=== PATIENT | female | born 1975 ===

== ENCOUNTER 2018-02-22 08:56 | Emergency (ER) | payer MEDICAID ==
[2018-02-22 08:58] VITALS: BMI 30.4
[2018-02-22 09:01] VITALS: TEMP 98.2
[2018-02-22] MEDS ORDERED: Labetalol 5 mg/ml Inj 20ML IVP STA (09:42)
[2018-02-22 09:59] LABS: BASO # 0.1 K/uL (0.0-0.2); EOS # 0.2 K/uL (0.0-0.7); EOS % 2.4 % (0.0-4.0); HEMOGLOBIN 13.5 g/dL (12.0-16.0); LYMPH # 1.9 K/uL (1.0-4.3); LYMPH % 24.4 % (20.0-40.0); MEAN CORPUSCULAR HEMOGLOBIN 29.1 pg (27.0-31.0); MEAN CORPUSCULAR HGB CONC 33.4 g/dL (33.0-37.0); MEAN PLATELET VOLUME 8.9 fl (7.2-11.7); MONO # 0.5 K/uL (0.0-0.8); MONO % 6.8 % (0.0-10.0); NEUT # 5.2 K/uL (1.8-7.0); NEUT % 65.4 % (50.0-75.0); NRBC % 0.1 % (0.0-0.0); RBC 4.65 Mil/uL (3.80-5.20); RED CELL DISTRIBUTION WIDTH 14.8 % (11.5-14.5); WHITE BLOOD COUNT 7.9 K/uL (4.8-10.8)
[2018-02-22 10:20] LABS: ALBUMIN 3.7 g/dL (3.5-5.0); ALT/SGPT 34 U/L (9-52); AST/SGOT 20 U/L (14-36); BLOOD UREA NITROGEN 18 mg/dl (7-17); GFR AFRICAN-AMERICAN > 60; GFR NON-AFRICAN AMERICAN > 60
--- NOTE | 2018-02-22 10:22 | ED PDOC ---
HPI: Hypertension/Hypotension Time Seen by Provider: 02/22/18 09:16 Chief Complaint (Nursing): High Blood Pressure History Per: Patient (This is a 42 yo lady without significant medical problem who presents to the ER because of hypertension that is poorly controlled. Patient states that she was only recently diagnosed and was started on HCTZ 25mg. She took her first dose last night. She denies chest pain, headache, nausea, vision problem, shortness of breath. She admits to have left sided back pain but has not noticed any change in her urine.) Past Medical History Reviewed: Historical Data, Nursing Documentation, Vital Signs Vital Signs: Last Vital Signs Temp 98.2 F 02/22/18 08:58 Pulse 64 02/22/18 10:11 Resp 14 02/22/18 10:11 BP 158/110 H 02/22/18 10:11 Pulse Ox 100 02/22/18 10:11 - Medical History PMH: HTN - Surgical History Surgical History: No Surg Hx - Family History Family History: States: No Known Family Hx - Living Arrangements Living Arrangements: With Family - Social History Current smoker - smoking cessation education provided: No Alcohol: None - Home Medications Home Medications: Ambulatory Orders Medication Instructions Recorded amLODIPine [Norvasc] 10 mg PO DAILY #15 tab 02/22/18 - Allergies Allergies/Adverse Reactions: Allergies Allergy/AdvReac Type Severity Reaction Status Date / Time No Known Allergies Allergy Verified 02/22/18 09:11 Review of Systems ROS Statement: Except As Marked, All Systems Reviewed And Found Negative Genitourinary Female: Negative for: Dysuria, Frequency, Hematuria Musculoskeletal: Positive for: Back Pain (left side) Physical Exam - Reviewed Nursing Documentation Reviewed: Yes Vital Signs Reviewed: Yes - Physical Exam Appears: Positive for: Well, Non-toxic, No Acute Distress Head Exam: Positive for: ATRAUMATIC, NORMAL INSPECTION, NORMOCEPHALIC Skin: Positive for: Normal Color, Warm, DRY Eye Exam: Positive for: EOMI, Normal appearance, PERRL ENT: Positive for: Normal ENT Inspection Neck: Positive for: Normal, Painless ROM Cardiovascular/Chest: Positive for: Regular Rate, Rhythm Respiratory: Positive for: CNT, Normal Breath Sounds Gastrointestinal/Abdominal: Positive for: Normal Exam, Soft Back: Positive for: Normal Inspection, L CVA Tenderness (mild) Extremity: Positive for: Normal ROM Neurologic/Psych: Positive for: Alert, Oriented - Laboratory Results Result Diagrams: 02/22/18 09:57 02/22/18 09:57 - ECG O2 Sat by Pulse Oximetry: 100 Medical Decision Making Medical Decision Making: blood pressure is modestly improved. patient remains without symptoms. Case d/w Dr. Poon who started her on HCTZ yesterday. States her EKG is normal as is here and that he did not see evidence of end-organ damage. He agrees to continuing HCTZ and adding Norvasc. He will see her in 4 days when he is back in the office. Disposition - Clinical Impression Clinical Impression: Hypertension - Patient ED Disposition Is Patient to be Admitted: No Doctor Will See Patient In The: Office Counseled Patient/Family Regarding: Diagnosis, Need For Followup, Rx Given - Disposition Referrals: Meryl Miller MD [Family Provider] - Disposition: Routine/Home Disposition Time: 14:00 Condition: IMPROVED Additional Instructions: Continue medication prescribed by Dr. Miller Prescriptions: amLODIPine [Norvasc] 10 mg PO DAILY #15 tab Instructions: High Blood Pressure in Adults Forms: [facility] ([place]) - POA Present On Arrival: None
--- NOTE | 2018-02-22 11:14 | CARD ---
APPROVED REPORT EKG Measurement Heart [id number] <Conclusion> Normal sinus rhythm Normal ECG
--- NOTE | 2018-02-22 11:27 | RAD ---
HISTORY: severe acute hypertension COMPARISON: No prior. TECHNIQUE: Chest PA and lateral FINDINGS: LUNGS: No active pulmonary disease. PLEURA: No significant pleural effusion identified. No pneumothorax apparent. CARDIOVASCULAR: Normal. OSSEOUS STRUCTURES: No significant abnormalities. VISUALIZED UPPER ABDOMEN: Normal. OTHER FINDINGS: None. IMPRESSION: No active disease.
[2018-02-22 11:41] LABS: SQUAMOUS EPITHIAL 10 /hpf (0-5); URINE BACTERIA RARE (<OCC); URINE BILIRUBIN NEGATIVE (NEGATIVE); URINE BLOOD MODERATE (NEGATIVE); URINE CLARITY SLIGHTY-CLOUDY (Clear); URINE COLOR YELLOW (YELLOW); URINE GLUCOSE (UA) NEG (Normal); URINE HYALINE CAST 0-2 /hpf (0-2); URINE LEUKOCYTE ESTERASE NEG Leu/uL (Negative); URINE PROTEIN NEGATIVE (NEGATIVE); URINE UROBILINOGEN 0.2-1.0 mg/dL (0.2-1.0)
[2018-02-22 14:09] VITALS: O2SAT 100
[2018-02-22 14:26] VITALS: BP 133/94; PULSE 66; RESP 16
== END 2018-02-22 15:11 | disposition home or self-care (01) ==
LOC: H.ER 08:56
DX: I10 Essential (primary) hypertension (principal)

== ENCOUNTER 2018-02-23 12:45 | Observation (INO) | payer MEDICAID ==
[2018-02-23 12:45] VITALS: BMI 30.4
--- NOTE | 2018-02-23 13:11 | ED PDOC ---
HPI:STROKE - Time Time: 13:00 - Historian Historian: Patient - Notes: Notes:: Pt reports numbness to L face and L upper shoulder since 11 AM today, associated with generalized RIBERA. Denies focal weakness, visual changes, CP, SOB. Able to ambulate without assistance. Was evaluated here in ED yesterday for elevated BP, Norvasc added to regimen and discharged home. NIHSS Stroke Scale - Date/Time Evaluation Performed Date Performed: 02/23/18 Time Performed: 13:00 When Was NIHSS Performed: Code Stroke - How Severe is the Stroke Level of Consciousness: 0=Alert LOC to Questions: 0=Both comments correct LOC to commands: 0=Obeys both correctly Best Gaze: 0=Normal Visual: 0=No visual loss Facial: 0=Normal Motor Arm - Left: 0=No drift Motor Arm - Right: 0=No drift Motor Leg - Left: 0=No drift Motor Leg - Right: 0=No drift Limb Ataxia: 0=Absent Sensory: 0=Normal Best Language: 0=No aphasia Dysarthia: 0=Normal articulation Extinction & Inattention (Neglect): 0=Normal, no object Score: 0 Severity Of Stroke: 0 = No Stroke rTPA Inclusion/Exclusion - Refusal of Treatment Patient Refused Treatment: No - Inclusion Criteria for Altepase Patient is 18 years or Older: Yes The Clinical Diagnosis of Ischemic Stroke That is Causing a Potentially Disabling Neurological Deficit: No Time of Onset is Well Established to be Less Than 270 Minute Before Treatment Would Begin: Yes Risk/Benefit Discussed With Patient/Family Member Present: No - Warning to TPA With Conditions Condition: Stroke Serevity Too Mild, Rapid Improvement Past Medical History Reviewed: Nursing Documentation, Vital Signs Vital Signs: Last Vital Signs Temp 98.0 F 02/23/18 12:54 Pulse 93 H 02/23/18 12:54 Resp 18 02/23/18 12:54 BP 164/133 H 02/23/18 12:54 Pulse Ox 99 02/23/18 12:54 - Medical History PMH: HTN - Family History Family History: States: Unknown Family Hx - Living Arrangements Living Arrangements: With Family - Social History Current smoker - smoking cessation education provided: No Alcohol: None - Home Medications Home Medications: Ambulatory Orders Medication Instructions Recorded amLODIPine [Norvasc] 10 mg PO DAILY #15 tab 02/22/18 - Allergies Allergies/Adverse Reactions: Allergies Allergy/AdvReac Type Severity Reaction Status Date / Time No Known Allergies Allergy Verified 02/22/18 09:11 Review of Systems Constitutional: Negative for: Fever, Weakness, Malaise, Weight loss Eyes: Negative for: Vision Change Cardiovascular: Negative for: Chest Pain, Palpitations Respiratory: Negative for: Cough, Shortness of Breath Gastrointestinal: Negative for: Abdominal Pain Skin: Negative for: Rash, Lesions Neurological: Positive for: Numbness, Headache. Negative for: Weakness, Incoordination, Change in Speech, Confusion, Seizures, Altered Mental Status, Dizziness Physical Exam - Reviewed Nursing Documentation Reviewed: Yes Vital Signs Reviewed: Yes - Physical Exam Appears: Positive for: Well, No Acute Distress Head Exam: Positive for: ATRAUMATIC, NORMAL INSPECTION Skin: Positive for: Normal Color, Warm, Dry Eye Exam: Positive for: Normal appearance, EOMI, PERRL Neck: Positive for: Normal, Painless ROM, Supple Cardiovascular/Chest: Positive for: Regular Rate, Rhythm Respiratory: Positive for: Normal Breath Sounds Gastrointestinal/Abdominal: Positive for: Normal Exam, Soft. Negative for: Tenderness Extremity: Positive for: Normal ROM Neurologic/Psych: Positive for: Alert, nps II-XII, Oriented, Cerebellar Tests ( Steady). Negative for: Motor/Sensory Deficits, Aphasia, Facial Droop - ECG O2 Sat by Pulse Oximetry: 99 Pulse Ox Interpretation: Normal - Physician Consult Information Time Consulting Physican Contacted: 13:10 Physician Contacted: Carlos Velasquez Outcome Of Conversation: Not a candidate for tPA, admit to tele, echo and MRI brain. Medical Decision Making Medical Decision Makin yo female with L facial and shoulder numbness. - Code stroke - labs - EKG - CXR - CT head - Neuro consult Disposition - Disposition
[2018-02-23] MEDS ORDERED: Sodium Chloride 0.9% 1,000 ML IV SCH (13:15)
--- NOTE | 2018-02-23 13:25 | CT ---
PROCEDURE: CT HEAD WITHOUT CONTRAST. HISTORY: code stroke COMPARISON: None available. TECHNIQUE: Axial computed tomography images were obtained through the head/brain without intravenous contrast. Radiation dose: Total exam DLP = 839.12 mGy-cm. This CT exam was performed using one or more of the following dose reduction techniques: Automated exposure control, adjustment of the mA and/or kV according to patient size, and/or use of iterative reconstruction technique. FINDINGS: HEMORRHAGE: No intracranial hemorrhage. BRAIN: No mass effect or edema. No atrophy or chronic microvascular ischemic changes. VENTRICLES: Unremarkable. No hydrocephalus. CALVARIUM: Unremarkable. PARANASAL SINUSES: Unremarkable as visualized. No significant inflammatory changes. MASTOID AIR CELLS: Unremarkable as visualized. No inflammatory changes. OTHER FINDINGS: None. IMPRESSION: Normal CT of the Head. The above findings were reported to the emergency room physician Dr. Best at 1:20 p.m. on 02/23/2018
[2018-02-23 13:26] LABS: BASO # 0.1 K/uL (0.0-0.2); EOS # 0.2 K/uL (0.0-0.7); EOS % 1.9 % (0.0-4.0); HEMOGLOBIN 15.1 g/dL (12.0-16.0); LYMPH # 1.8 K/uL (1.0-4.3); LYMPH % 22.2 % (20.0-40.0); MEAN CELL VOLUME 86.4 fl (81.0-99.0); MEAN CORPUSCULAR HEMOGLOBIN 29.5 pg (27.0-31.0); MEAN CORPUSCULAR HGB CONC 34.1 g/dL (33.0-37.0); MEAN PLATELET VOLUME 9.1 fl (7.2-11.7); MONO # 0.5 K/uL (0.0-0.8); MONO % 5.7 % (0.0-10.0); NEUT # 5.6 K/uL (1.8-7.0); NEUT % 69.2 % (50.0-75.0); NRBC % 0.2 % (0.0-0.0); RBC 5.14 Mil/uL (3.80-5.20); RED CELL DISTRIBUTION WIDTH 15.2 % (11.5-14.5); WHITE BLOOD COUNT 8.1 K/uL (4.8-10.8)
[2018-02-23 13:36] LABS: ALBUMIN 4.2 g/dL (3.5-5.0); ALT/SGPT 34 U/L (9-52); AST/SGOT 20 U/L (14-36); BLOOD UREA NITROGEN 15 mg/dl (7-17); GFR AFRICAN-AMERICAN > 60; GFR NON-AFRICAN AMERICAN > 60; HDL CHOLESTEROL 41 MG/DL (30-70)
[2018-02-23 13:39] LABS: PARTIAL THROMBOPLASTIN TIME 34.4 Seconds (25.6-37.1); PROTHROMBIN TIME 11.2 Seconds (9.8-13.1)
[2018-02-23 13:47] LABS: LDL CHOLESTEROL 131 mg/dL (0-129)
--- NOTE | 2018-02-23 15:30 | MRI ---
PROCEDURE: MRI BRAIN WITHOUT CONTRAST HISTORY: L facial numbness COMPARISON: None. TECHNIQUE: Multiplanar, multisequence MR images of the brain were obtained without intravenous contrast enhancement. FINDINGS: HEMORRHAGE: None DWI: No evidence of an acute or early subacute infarction. BRAIN PARENCHYMA: There are nonspecific scattered small foci of hyperintense T2 and FLAIR signal seen in the periventricular and subcortical white matter. The differential consideration includes demyelination disease Lyme disease sequela of infection or inflammatory process and migraine. No atrophy or chronic microvascular ischemic changes. VENTRICLES: Unremarkable. No hydrocephalus. CRANIUM: Unremarkable. ORBITS: Grossly unremarkable. PARANASAL SINUSES/MASTOIDS: Clear VASCULAR SYSTEM: Skull base flow voids intact. OTHER FINDINGS: None. IMPRESSION: Nonspecific scattered small foci of hyperintense T2 and FLAIR signal in the subcortical and periventricular white matter. The differential consideration includes demyelination disease, Lyme disease sequela of prior infection or inflammatory process or less likely vasculitis and migraine. No evidence of acute infarction mass effect or midline shift.
--- NOTE | 2018-02-23 16:29 | RAD ---
HISTORY: Code Stroke COMPARISON: Comparison is made with 02/22/2018 FINDINGS: LUNGS: No evidence of acute pulmonary disease or significant interval change since the previous exam PLEURA: No significant pleural effusion identified, no pneumothorax apparent. CARDIOVASCULAR: Normal. OSSEOUS STRUCTURES: No significant abnormalities. VISUALIZED UPPER ABDOMEN: Normal. OTHER FINDINGS: None. IMPRESSION: No active disease.
--- NOTE | 2018-02-23 16:58 | CP.PCM.HP ---
History of Present Illness - History of Present Illness History of Present Illness: 42 yo female diagnosed just yesterday with HTN, came in because of numbness on the left side of the face and left shoulder starting at 10am today associated with generalized headache. She denied motor weakness, visual changes or dysarthria. Present on Admission - Present on Admission Any Indicators Present on Admission: No History of DVT/PE: No History of Uncontrolled Diabetes: No Urinary Catheter: No Decubitus Ulcer Present: No Review of Systems - Review of Systems All systems: reviewed and no additional remarkable complaints except (aside from those mentioned above, 12 point system review were negative by me) Past Patient History - Infectious Disease Hx of Infectious Diseases: None - Tetanus Immunizations Tetanus Immunization: Unknown - Past Medical History & Family History Past Medical History?: No Pertinent Family History: both parents positive for HTN - Past Social History Smoking Status: Never Smoked Chewing Tobacco Use: No Cigar Use: No Alcohol: None Drugs: Denies Home Situation {Lives}: With Family - CARDIAC Hx Hypertension: Yes - PSYCHIATRIC Hx Substance Use: No - ANESTHESIA Hx Anesthesia: No Meds Allergies/Adverse Reactions: Allergies Allergy/AdvReac Type Severity Reaction Status Date / Time No Known Allergies Allergy Verified 02/22/18 09:11 Physical Exam - Constitutional Appears: No Acute Distress - Head Exam Head Exam: ATRAUMATIC - Eye Exam Eye Exam: PERRL. absent: Scleral icterus - ENT Exam ENT Exam: Mucous Membranes Moist - Neck Exam Neck exam: Negative for: Meningismus - Respiratory Exam Respiratory Exam: absent: Rales, Rhonchi, Wheezes, Respiratory Distress - Cardiovascular Exam Cardiovascular Exam: REGULAR RHYTHM, +S1, +S2 - GI/Abdominal Exam GI & Abdominal Exam: Soft. absent: Tenderness - Rectal Exam Rectal Exam: Deferred - Extremities Exam Extremities exam: Negative for: calf tenderness, pedal edema - Back Exam Back exam: NORMAL INSPECTION - Neurological Exam Neurological exam: Alert, Oriented x3 - Psychiatric Exam Psychiatric exam: Normal Affect - Skin Skin Exam: Dry, Intact Results - Vital Signs Recent Vital Signs: Last Vital Signs Temp 98.0 F 02/23/18 12:54 Pulse 93 H 02/23/18 12:54 Resp 18 02/23/18 12:54 BP 164/133 H 02/23/18 12:54 Pulse Ox 99 02/23/18 13:14 - Labs Result Diagrams: 02/23/18 13:15 02/23/18 13:15 Labs: Laboratory Results - last 24 hr 02/23/18 02/23/18 02/23/18 12:55 13:08 13:15 WBC 8.1 RBC 5.14 Hgb 15.1 Hct 44.4 MCV 86.4 MCH 29.5 MCHC 34.1 RDW 15.2 H Plt Count 251 MPV 9.1 Neut % (Auto) 69.2 Lymph % (Auto) 22.2 Lane % (Auto) 5.7 Eos % (Auto) 1.9 Baso % (Auto) 1.0 Neut # (Auto) 5.6 Lymph # (Auto) 1.8 Lane # (Auto) 0.5 Eos # (Auto) 0.2 Baso # (Auto) 0.1 PT INR APTT Sodium Potassium Chloride Carbon Dioxide Anion Gap BUN Creatinine Est GFR ( Amer) Est GFR (Non-Af Amer) POC Glucose (mg/dL) 94 Random Glucose Calcium Total Bilirubin AST ALT Alkaline Phosphatase Troponin I Total Protein Albumin Globulin Albumin/Globulin Ratio Triglycerides Cholesterol LDL Cholesterol Direct HDL Cholesterol Blood Type A POSITIVE Antibody Screen Negative BBK History Checked Patient has bt 02/23/18 02/23/18 13:15 13:15 WBC RBC Hgb Hct MCV MCH MCHC RDW Plt Count MPV Neut % (Auto) Lymph % (Auto) Lane % (Auto) Eos % (Auto) Baso % (Auto) Neut # (Auto) Lymph # (Auto) Lane # (Auto) Eos # (Auto) Baso # (Auto) PT 11.2 INR 1.0 APTT 34.4 Sodium 139 Potassium 3.9 Chloride 102 Carbon Dioxide 22 Anion Gap 19 BUN 15 Creatinine 0.9 Est GFR ( Amer) > 60 Est GFR (Non-Af Amer) > 60 POC Glucose (mg/dL) Random Glucose 103 Calcium 9.0 Total Bilirubin 1.3 AST 20 ALT 34 Alkaline Phosphatase 84 Troponin I < 0.0120 Total Protein 8.4 H Albumin 4.2 Globulin 4.3 H Albumin/Globulin Ratio 1.0 Triglycerides 133 Cholesterol 211 H LDL Cholesterol Direct 131 H HDL Cholesterol 41 Blood Type Antibody Screen BBK History Checked Assessment & Plan - Assessment and Plan (Free Text) Assessment: 42 yo female diagnosed just yesterday with HTN, came in because of numbness on the left side of the face and left shoulder starting at 10am today associated with generalized headache. She denied motor weakness, visual changes or dysarthria. 1. TIA CT scan of head: normal MRI of the head: no acute infarction noted neuro consult with Dr Velasquez (called by ER) 2. HTN BP uncontrolled continue Norvasc 10mg PO daily and HCTZ 25mg PO daily Clonidine 0.1mg PO q hr PRN (max of 0.7mg/24hrs)
[2018-02-23 20:46] VITALS: RESP 18
[2018-02-24 00:27] VITALS: O2SAT 100
[2018-02-24 08:07] LABS: BASO % 0.4 % (0.0-2.0); EOS # 0.1 K/uL (0.0-0.7); EOS % 1.9 % (0.0-4.0); HEMOGLOBIN 14.2 g/dL (12.0-16.0); LYMPH % 24.7 % (20.0-40.0); MEAN CORPUSCULAR HEMOGLOBIN 29.2 pg (27.0-31.0); MEAN PLATELET VOLUME 9.2 fl (7.2-11.7); MONO # 0.4 K/uL (0.0-0.8); MONO % 5.3 % (0.0-10.0); NEUT # 5.4 K/uL (1.8-7.0); NEUT % 67.7 % (50.0-75.0); NRBC % 0.2 % (0.0-0.0); RBC 4.87 Mil/uL (3.80-5.20); RED CELL DISTRIBUTION WIDTH 14.8 % (11.5-14.5)
[2018-02-24 08:12] VITALS: BP 131/88; TEMP 98.3
[2018-02-24 08:16] LABS: BLOOD UREA NITROGEN 16 mg/dl (7-17); CALCIUM 8.7 mg/dL (8.4-10.2); GFR AFRICAN-AMERICAN > 60; GFR NON-AFRICAN AMERICAN > 60; HDL CHOLESTEROL 32 MG/DL (30-70)
[2018-02-24 08:27] LABS: LDL CHOLESTEROL 108 mg/dL (0-129)
[2018-02-24] MEDS ORDERED: Enoxaparin 40 mg Syringe SC SCH (09:00)
[2018-02-24] MEDS ORDERED: Pantoprazole 40 mg EC Tab PO SCH (09:00)
--- NOTE | 2018-02-24 10:24 | CP.PCM.DIS ---
Provider - Provider Date of Admission: 02/23/18 Attending physician: Matt Hernandez MD Time Spent in preparation of Discharge (in minutes): 30 Diagnosis - Discharge Diagnosis (1) Hypertension Status: Acute Hospital Course - Lab Results Lab Results: Most Recent Lab Values WBC 8.0 K/uL (4.8-10.8) 02/24/18 07:05 RBC 4.87 Mil/uL (3.80-5.20) 02/24/18 07:05 Hgb 14.2 g/dL (12.0-16.0) 02/24/18 07:05 Hct 41.9 % (34.0-47.0) 02/24/18 07:05 MCV 86.0 fl (81.0-99.0) 02/24/18 07:05 MCH 29.2 pg (27.0-31.0) 02/24/18 07:05 MCHC 34.0 g/dL (33.0-37.0) 02/24/18 07:05 RDW 14.8 % (11.5-14.5) H 02/24/18 07:05 Plt Count 255 K/uL (130-400) 02/24/18 07:05 MPV 9.2 fl (7.2-11.7) 02/24/18 07:05 Neut % (Auto) 67.7 % (50.0-75.0) 02/24/18 07:05 Lymph % (Auto) 24.7 % (20.0-40.0) 02/24/18 07:05 [place] % (Auto) 5.3 % (0.0-10.0) 02/24/18 07:05 Eos % (Auto) 1.9 % (0.0-4.0) 02/24/18 07:05 Baso % (Auto) 0.4 % (0.0-2.0) 02/24/18 07:05 Neut # (Auto) 5.4 K/uL (1.8-7.0) 02/24/18 07:05 Lymph # (Auto) 2.0 K/uL (1.0-4.3) 02/24/18 07:05 [place] # (Auto) 0.4 K/uL (0.0-0.8) 02/24/18 07:05 Eos # (Auto) 0.1 K/uL (0.0-0.7) 02/24/18 07:05 Baso # (Auto) 0.0 K/uL (0.0-0.2) 02/24/18 07:05 PT 11.2 Seconds (9.8-13.1) 02/23/18 13:15 INR 1.0 (0.9-1.2) 02/23/18 13:15 APTT 34.4 Seconds (25.6-37.1) 02/23/18 13:15 Sodium 138 mmol/l (132-148) 02/24/18 07:05 Potassium 3.5 MMOL/L (3.6-5.0) L 02/24/18 07:05 Chloride 102 mmol/L (98-107) 02/24/18 07:05 Carbon Dioxide 25 mmol/L (22-30) 02/24/18 07:05 Anion Gap 15 (10-20) 02/24/18 07:05 BUN 16 mg/dl (7-17) 02/24/18 07:05 Creatinine 0.9 mg/dl (0.7-1.2) 02/24/18 07:05 Est GFR ( Amer) > 60 02/24/18 07:05 Est GFR (Non-Af Amer) > 60 02/24/18 07:05 POC Glucose (mg/dL) 94 mg/dL (65-110) 02/23/18 12:55 Random Glucose 105 mg/dL (65-105) 02/24/18 07:05 Hemoglobin A1c 5.2 % (4.2-6.5) 02/23/18 16:12 Calcium 8.7 mg/dL (8.4-10.2) 02/24/18 07:05 Total Bilirubin 1.3 mg/dl (0.2-1.3) 02/23/18 13:15 AST 20 U/L (14-36) 02/23/18 13:15 ALT 34 U/L (9-52) 02/23/18 13:15 Alkaline Phosphatase 84 U/L (38-126) 02/23/18 13:15 Troponin I < 0.0120 ng/mL (0.00-0.120) 02/23/18 13:15 Total Protein 8.4 G/DL (6.3-8.2) H 02/23/18 13:15 Albumin 4.2 g/dL (3.5-5.0) 02/23/18 13:15 Globulin 4.3 gm/dL (2.2-3.9) H 02/23/18 13:15 Albumin/Globulin Ratio 1.0 (1.0-2.1) 02/23/18 13:15 Triglycerides 157 mg/DL (0-149) H 02/24/18 07:05 Cholesterol 190 mg/dL (0-199) 02/24/18 07:05 LDL Cholesterol Direct 108 mg/dL (0-129) 02/24/18 07:05 HDL Cholesterol 32 MG/DL (30-70) 02/24/18 07:05 TSH 3rd Generation 2.88 mIU/ML (0.46-4.68) 02/24/18 07:05 Blood Type A POSITIVE 02/23/18 13:08 Antibody Screen Negative 02/23/18 13:08 BBK History Checked Patient has bt 02/23/18 13:08 - Hospital Course Hospital Course: 42 yo female diagnosed just yesterday with HTN, came in because of numbness on the left side of the face and left shoulder starting at 10am today associated with generalized headache. She denied motor weakness, visual changes or dysarthria. Patient symptoms fully resolved. MRI negative. Pt evaluated by Neurology. Stable to be discharged home. Follow up PCP in one week. 1. TIA vs. Symptomatic Hypertension CT scan of head: normal MRI of the head: no acute infarction noted neuro consult with Dr Velasquez (called by ER) Stable to be dc home with follow up PCP in one week 2. HTN BP uncontrolled continue Norvasc 10mg PO daily and HCTZ 25mg PO daily Clonidine 0.1mg PO q hr PRN (max of 0.7mg/24hrs) Discharge Exam - Head Exam Head Exam: ATRAUMATIC, NORMOCEPHALIC - Eye Exam Eye Exam: EOMI, Normal appearance, PERRL Pupil Exam: NORMAL ACCOMODATION - Neck Exam Neck exam: Full Rom, Normal Inspection - Respiratory Exam Respiratory Exam: Clear to PA & Lateral, NORMAL BREATHING PATTERN - Cardiovascular Exam Cardiovascular Exam: RRR, +S1, +S2 - GI/Abdominal Exam GI & Abdominal Exam: Normal Bowel Sounds, Soft. absent: Mass, Tenderness - Extremities Exam Extremities exam: normal capillary refill, pedal pulses present - Back Exam Back exam: absent: CVA tenderness (L), CVA tenderness (R) - Neurological Exam Neurological exam: Alert, CN II-XII Intact, Normal Gait, Oriented x3, Reflexes Normal Additional comments: no focal deficits - Psychiatric Exam Psychiatric exam: Normal Affect, Normal Mood - Skin Skin Exam: Dry, Warm Discharge Plan - Discharge Medications Prescriptions: amLODIPine [Norvasc] 10 mg PO DAILY #30 tab - Follow Up Plan Condition: STABLE Disposition: HOME/ ROUTINE Additional Instructions: Follow up PCP in ONE week
[2018-02-24 11:02] VITALS: PULSE 9
--- NOTE | 2018-02-25 14:36 | CARD ---
APPROVED REPORT EKG Measurement Heart [id number] <Conclusion> Normal sinus rhythm Possible Left atrial enlargement Borderline ECG
== END 2018-02-24 13:30 | disposition home or self-care (01) ==
LOC: H.ER 12:45 → INTOOBSV 14:33 → H.ERHOLD 14:33 → H.TEL 17:27
DX: I10 Essential (primary) hypertension (principal); Z79.899 Other long term (current) drug therapy; Z82.49 Family history of ischemic heart disease and other diseases of the circulatory system; R51 Headache
CPT/HCPCS: 36415; 70450; 70551; 71045; 80048; 80053; 80061; 81025; 82948; 83036; 84443; 84484; 85025; 85610; 85730; 86850; 86900; 93005; 96360; 96361; 99285; G0378; J7030

== ENCOUNTER 2018-02-26 10:11 | Emergency (ER) | payer MEDICAID ==
[2018-02-26 10:11] VITALS: BMI 30.4
[2018-02-26 10:24] VITALS: O2SAT 100
--- NOTE | 2018-02-26 11:04 | ED PDOC ---
HPI: Chest Pain <Lorena Diaz - Last Filed: 02/26/18 16:24> Chief Complaint (Provider): Chest tightness/Numbness History Per: Patient, Family History/Exam Limitations: no limitations Onset/Duration Of Symptoms: Hrs Current Symptoms Are (Timing): Still Present <Mary Ann Watson - Last Filed: 02/26/18 17:50> Time Seen by Provider: 02/26/18 10:22 Chief Complaint (Nursing): Chest Pain Additional Complaint(s): 42 y/o F with recent diagnosed of HTN presents to ED this morning complaining of chest tightness sensation. Patient states that she woke up today at 4 am with chest tightness sensation, and left facial/ left upper extremity numbness since this morning. Patient states that her left facial numbness resolved, and is intermittent, but still having the LUE numbness. Also reports difficulty breathing, nausea without vomiting, and blurry vision. Denies abdominal pain, chest pain, diarrheas, dizziness, tingling, weakness or other complains. Patient had a recent hospital admission for similar complains of numbness, code stroke was called, Head CT was reported as unremarkable, Brain MRI w/o contrast reported as white matter changes. On admission was seen and evaluated by Neurologist, Dr. Martinez, and cleared from neuro standpoint, and stroke was r/o. (Mary Ann Watson) Supervising Attending Note - Supervising Attending Note The Documented history was done by the: Physician Foreign Language Interpreter, Attending Physician The documented physical exam was done by the: Physician Foreign Language Interpreter, Attending Physician The documented procedures were done by the: Physician Foreign Language Interpreter, Attending Physician - Attestation: I have personally seen and examined this patient.: Yes I have fully participated in the care of the patient.: Yes I have reviewed all pertinent clinical information: Yes <KeikokietshireenLorena Fabricio - Last Filed: 02/26/18 16:24> Past Medical History <KeikokietshireenLorena Fabricio - Last Filed: 02/26/18 16:24> - Medical History PMH: HTN, Hypercholesterolemia Denies: HIV, Chronic Kidney Disease - Family History Family History: States: Unknown Family Hx <Mary Ann Watson - Last Filed: 02/26/18 17:50> Vital Signs: Last Vital Signs Temp 98.8 F 02/26/18 16:43 Pulse 76 02/26/18 16:43 Resp 18 02/26/18 16:43 BP 141/98 H 02/26/18 16:43 Pulse Ox 100 02/26/18 16:43 - Home Medications Home Medications: Ambulatory Orders Medication Instructions Recorded Hydrochlorothiazide [Microzide] 25 mg PO DAILY 02/23/18 amLODIPine [Norvasc] 10 mg PO DAILY #30 tab 02/24/18 - Allergies Allergies/Adverse Reactions: Allergies Allergy/AdvReac Type Severity Reaction Status Date / Time No Known Allergies Allergy Verified 02/26/18 10:20 EDGAR Risk Score for UA/NSTEMI - EDGAR Risk Score Age > 64: NO 3 or more CAD Risk Factors: NO Known CAD (Stenosis greater than 50%): NO Aspirin use in past 7 days: NO Severe Angina: NO EKG ST changes greater than 0.5mm: NO Positive Cardiac Marker: NO EDGAR Score: 0 Risk %: 5% <Mary Ann Watson - Last Filed: 02/26/18 17:50> Curb-65 Severity Score - CURB-65 Severity Score Confusion: No Bun >19mg/dl (>7mmol/L): No Respiratory Rate greater than/equal to 30: No Systolic BP <90 or Diastolic BP less than/equal 60mmHg: No Age >64: No Curb-65 Score: 0 Percentage 30-day mortality: 0.6% <Mary Ann Watson - Last Filed: 02/26/18 17:50> Wells Criteria for PE - Wells Criteria for Pulmonary Embolism Clinical Signs and Symptoms of DVT: No P.E is #1 Diagnosis, or Equally Likely: No Heart Rate >100: No Immobilization at least 3 days;Surgery previous 4 weeks: No Previous, objectively diagnosed PE or DVT: No Hemoptysis: No Malignancy w/treatment within 6 months, or palliative: No Total Score: 0 <Mary Ann Watson - Last Filed: 02/26/18 17:50> Review of Systems ROS Statement: Except As Marked, All Systems Reviewed And Found Negative (as per HPI) <Mary Ann Watson - Last Filed: 02/26/18 17:50> Physical Exam - Reviewed Nursing Documentation Reviewed: Yes Vital Signs Reviewed: Yes - Physical Exam Appears: Positive for: Non-toxic, No Acute Distress Head Exam: Positive for: ATRAUMATIC, NORMOCEPHALIC Skin: Positive for: Normal Color, Warm, Dry Eye Exam: Positive for: Normal appearance, EOMI, PERRL. Negative for: Nystagmus , Conjunctival injection ENT: Positive for: Normal ENT Inspection Neck: Positive for: Normal, Supple Cardiovascular/Chest: Positive for: Regular Rate, Rhythm. Negative for: Chest Non Tender, Edema, Gallop, Murmur, Bradycardia, Tachycardia, Friction Rub, Irregularly Irregular Respiratory: Positive for: Normal Breath Sounds. Negative for: Decreased Breath Sounds, Accessory Muscle Use, Crackles, Rales, Rhonchi, Wheezing, Respiratory Distress Gastrointestinal/Abdominal: Positive for: Bowel Sounds, Soft. Negative for: Tenderness, Distended, Guarding, Rebound Back: Positive for: Normal Inspection. Negative for: L CVA Tenderness, R CVA Tenderness Extremity: Negative for: Pedal Edema, Calf Tenderness DTR - Knee (R): 2+ DTR - Knee (L): 2+ Neurologic/Psych: Positive for: Alert, nuclear supervising operator II-XII (grossly normal, no evidence of neurological defect), Oriented (x 3). Negative for: Motor/Sensory Deficits, Gait, Aphasia, Facial Droop <Mary Ann Watson - Last Filed: 02/26/18 17:50> - Laboratory Results Result Diagrams: 02/26/18 12:47 02/26/18 10:50 <Lorena Diaz - Last Filed: 02/26/18 16:24> - Laboratory Results Result Diagrams: 02/26/18 12:47 02/26/18 10:50 - ECG O2 Sat by Pulse Oximetry: 100 <Mary Ann Watson - Last Filed: 02/26/18 17:50> Medical Decision Making <Lorena Diaz - Last Filed: 02/26/18 16:24> <Mary Ann Watson - Last Filed: 02/26/18 17:50> Medical Decision Making: Chest tightness -EKG showd no evidence of acute St-T wave changes, with possible LVH -check Troponin I x 1 -check BMP Left Upper extremity numbness -Head CT scan w/o contrast -Neuro consult. -re-evaluation -case discussed with Dr. Diaz Re-evaluation -troponin I neg -CBC WNL -I spoke with Dr. Velasquez. Dr. Velasquez states she knows patient from recent admission. Reports she thinks that the numbness is not secondary to stroke or MS, with the white matter changes seen in Brain MRI on admission could be secondary to Hypertension. Dr. Velasquez recommends to repeat Brain MRI without contrast, and if MRI is normal patient will be cleared from Neurology point of view and can be discharged home with outpatient f/u with PMD. No other recommendations were given at this time. -Mild hypokalemia noted in chemistry. Will replace with PO potassium once Re-evaluation -Patient feels better, but states numbness comes and goes. Patient was evaluated by Neurology in ER. -Brain MRI w/o contrast results noted. Dr. Diaz discussed results with Dr. Velasqeuz -Neurology cleared patient for discharge home with recommended f/u as outpatient -c/w current HTN medications -Neurology recommended to start daily baby aspirin. F/U as outpatient for possible MRI of cervical sp. -HTN improved to 141/98 without intervention in ER -recommended f/u with PMD for secondary HTN work up (Mary Ann Watson) Disposition <Lorena Diaz - Last Filed: 02/26/18 16:24> - Patient ED Disposition Is Patient to be Admitted: No Discussed With : Lorena Diaz - Disposition Disposition Time: 17:30 <Mary Ann Watson - Last Filed: 02/26/18 17:50> - Clinical Impression Clinical Impression: Chest pain, Numbness - Disposition Referrals: Carlos Velasquez MD [Medical Doctor] - Condition: GOOD Additional Instructions: Follow up with your PCP and neurologist in 2-3 days. for outpatient MRI of cervical spine. Take baby aspirin daily. Return for worsening. Instructions: Chest Pain, Paresthesias (DC)
--- NOTE | 2018-02-26 11:33 | CT ---
PROCEDURE: CT HEAD WITHOUT CONTRAST. HISTORY: numbness COMPARISON: CT head dated 02/23/2018. TECHNIQUE: Axial computed tomography images were obtained through the head/brain without intravenous contrast. Radiation dose: Total exam DLP = 784.7 mGy-cm. This CT exam was performed using one or more of the following dose reduction techniques: Automated exposure control, adjustment of the mA and/or kV according to patient size, and/or use of iterative reconstruction technique. FINDINGS: HEMORRHAGE: No intracranial hemorrhage. BRAIN: No mass effect or edema. No atrophy or chronic microvascular ischemic changes. VENTRICLES: Unremarkable. No hydrocephalus. CALVARIUM: Unremarkable. PARANASAL SINUSES: Unremarkable as visualized. No significant inflammatory changes. MASTOID AIR CELLS: Unremarkable as visualized. No inflammatory changes. OTHER FINDINGS: None. IMPRESSION: No acute intracranial pathology.
[2018-02-26 11:44] LABS: BLOOD UREA NITROGEN 19 mg/dl (7-17); CALCIUM 9.7 mg/dL (8.4-10.2); GFR AFRICAN-AMERICAN > 60; GFR NON-AFRICAN AMERICAN > 60
[2018-02-26] MEDS ORDERED: Potassium Chloride 20 mEq ER Tab PO ONE ×2 (11:48→12:35)
[2018-02-26 12:50] LABS: HEMOGLOBIN 15.1 g/dL (12.0-16.0); MEAN CELL VOLUME 85.8 fl (81.0-99.0); MEAN CORPUSCULAR HEMOGLOBIN 29.2 pg (27.0-31.0); RBC 5.16 Mil/uL (3.80-5.20); RED CELL DISTRIBUTION WIDTH 14.9 % (11.5-14.5); WHITE BLOOD COUNT 8.3 K/uL (4.8-10.8)
--- NOTE | 2018-02-26 15:04 | MRI ---
PROCEDURE: MRI BRAIN WITHOUT CONTRAST HISTORY: Numbness COMPARISON: Noncontrast head CT performed earlier the same day. TECHNIQUE: Multiplanar, multisequence MR images of the brain were obtained without intravenous contrast enhancement. FINDINGS: HEMORRHAGE: None DWI: No evidence of an acute or early subacute infarction. BRAIN PARENCHYMA: There are multiple T2/FLAIR hyperintense lesions in the subcortical, deep and periventricular white matter, the largest in the right subinsular white matter measures 7 mm. There is no mass, mass effect or abnormal extra-axial fluid collection. There is no territorial infarction. There is a partially empty sella, otherwise the midline sagittal structures are normal. VENTRICLES: There is mild age advanced global parenchymal volume loss and proportionate enlargement of the ventricles and cortical sulci. CRANIUM: There is normal bone marrow signal pattern. ORBITS: Grossly unremarkable. PARANASAL SINUSES/MASTOIDS: Predominantly clear. VASCULAR SYSTEM: There are normal signal voids in the larger intracranial arteries. OTHER FINDINGS: None. IMPRESSION: Multifocal subcortical, deep and periventricular supratentorial white matter lesions are strictly nonspecific. The differential considerations include migraine headache effect, early chronic microangiopathic changes, gliosis, Lyme disease, vasculitis and demyelinating disease including multiple sclerosis. Clinical correlation and follow-up is advised. Mild age advanced global parenchymal volume loss.
--- NOTE | 2018-02-26 15:09 | CARD ---
APPROVED REPORT EKG Measurement Heart [id number] <Conclusion> Normal sinus rhythm Minimal voltage criteria for LVH, may be normal variant Borderline ECG
[2018-02-26 16:45] VITALS: BP 141/98; PULSE 76; RESP 18; TEMP 98.8
--- NOTE | 2018-02-26 17:30 | CP.PCM.CON ---
History of Present Illness - History of Present Illness History of Present Illness: 42 yr old woman who was just evaluated last week for left facial numbness and tingling who had normal MRI and normal CTA x2 adn continues to have symptoms. Miss landa does give a history of dental work, with bilateral root canals and the more aggressive surgery being performed on her left side. 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 Denies aphasia, gait ataxia and weakness. PMH/PSH: Hypertension. FH/SH: , has 2 children. All: nkda. on exam: Normal neurological examination. Past Patient History - Infectious Disease Hx of Infectious Diseases: None - Tetanus Immunizations Tetanus Immunization: Unknown - Past Medical History & Family History Past Medical History?: No - Past Social History Smoking Status: Never Smoked - CARDIAC Hx Hypercholesterolemia: Yes Hx Hypertension: Yes - PULMONARY Hx Respiratory Disorders: No - NEUROLOGICAL Hx Neurological Disorder: No - HEENT Hx HEENT Problems: No - RENAL Hx Chronic Kidney Disease: No - ENDOCRINE/METABOLIC Hx Endocrine Disorders: No - HEMATOLOGICAL/ONCOLOGICAL Hx Human Immunodeficiency Virus (HIV): No - INTEGUMENTARY Hx Dermatological Problems: No - MUSCULOSKELETAL/RHEUMATOLOGICAL Hx Musculoskeletal Disorders: No Hx Falls: No - GASTROINTESTINAL Hx Gastrointestinal Disorders: No - GENITOURINARY/GYNECOLOGICAL Hx Genitourinary Disorders: No - PSYCHIATRIC Hx Psychophysiologic Disorder: No Hx Substance Use: No - SURGICAL HISTORY Hx Surgeries: No - ANESTHESIA Hx Anesthesia: No Meds Allergies/Adverse Reactions: Allergies Allergy/AdvReac Type Severity Reaction Status Date / Time No Known Allergies Allergy Verified 02/26/18 10:20 Results - Vital Signs Recent Vital Signs: Last Vital Signs Temp 98.8 F 02/26/18 16:43 Pulse 76 02/26/18 16:43 Resp 18 02/26/18 16:43 BP 141/98 H 02/26/18 16:43 Pulse Ox 100 02/26/18 16:43 - Labs Result Diagrams: 02/26/18 12:47 02/26/18 10:50 Labs: Laboratory Results - last 24 hr 02/26/18 02/26/18 10:50 12:47 WBC 8.3 RBC 5.16 Hgb 15.1 Hct 44.3 MCV 85.8 MCH 29.2 MCHC 34.0 RDW 14.9 H Plt Count 264 Sodium 139 Potassium 3.5 L Chloride 100 Carbon Dioxide 26 Anion Gap 17 BUN 19 H Creatinine 0.9 Est GFR ( Amer) > 60 Est GFR (Non-Af Amer) > 60 Random Glucose 113 H Calcium 9.7 Troponin I < 0.0120 Assessment & Plan - Assessment and Plan (Free Text) Assessment: 42 yr old woman who has a chief complaint of numbness, which is not stroke, but may be MS or other demyelinating process. A/P: 1. Follow up outpatient with neurology 2. MRI C spine and MRI brain with contrast. 3. Patient may be discharged home. thank you DR. LEON
== END 2018-02-26 16:50 | disposition home or self-care (01) ==
LOC: H.ER 10:11
DX: R07.89 Other chest pain (principal); R20.2 Paresthesia of skin; E78.00 Pure hypercholesterolemia, unspecified; I10 Essential (primary) hypertension